=== PATIENT | male | born 1950 | race Caucasian/White ===

== ENCOUNTER 2019-11-16 12:36 | Emergency (ER) | payer MEDICARE, SELFPAY ==
--- NOTE | 2019-11-16 13:33 | ED.FEMALEGU ---
HPI - Female Genitourinary General Chief complaint: Urogenital-Female Stated complaint: Possible Bladder infection/Cold/Cough Time Seen by Provider: 11/16/19 13:33 Source: patient Mode of arrival: ambulatory History of Present Illness HPI Narrative: Patient presents with burning with urination, urinary frequency, and urgency. Patient denies abdominal pain no pelvic pain no back or flank pain. MD elicited complaint: dysuria and UTI Related Data Home Medications Medication Instructions Recorded Confirmed levothyroxine 25 mcg PO DAILY 11/16/19 11/16/19 metoprolol tartrate 50 mg PO DAILY 11/16/19 11/16/19 sertraline [Zoloft] 25 mg PO DAILY 11/16/19 11/16/19 sertraline [Zoloft] 50 mg PO DAILY 11/16/19 11/16/19 Allergies Allergy/AdvReac Type Severity Reaction Status Date / Time erythromycin base Allergy Rash Verified 11/16/19 12:56 Review of Systems Review of Systems: Narrative: CONSTITUTIONAL: Denies fever, chills, or sweats. EYES: Denies visual changes, redness, or discharge. ENT: Denies rhinorrhea, congestion, sore throat, or otalgia. CARDIOVASCULAR: Denies chest pain, palpitations, or edema. RESPIRATORY: Denies cough or dyspnea. GASTROINTESTINAL: Denies abdominal pain, nausea, vomiting, or diarrhea. GENITOURINARY: Denies hematuria. Reports urinary urgency, burning with urination and frequency SKIN: Denies rash or itching. MUSCULOSKELETAL: Denies back pain, joint pain, or myalgia. NEUROLOGIC: Denies headache, numbness, or weakness. PSYCHIATRIC: Denies anxiety or depression. PMFSH Comments At time of signature, agree with nursing past medical, surgical, social and family history. There is no relevant family history pertinent to the presenting complaint Exam Narrative: Exam Narrative: GENERAL: Well-appearing, well-nourished, and in no acute distress. HEAD: Normocephalic, atraumatic. EYES: PERRLA and EOMI. ENT: Nares clear, no rhinorrhea or epistaxis. Mucous membranes moist. NECK: Supple. CHEST: Clear to auscultation. No respiratory distress. HEART: Regular rate and rhythm. No murmur heard. Normal peripheral pulses. ABDOMEN: Soft, nontender, nondistended, normal active bowel sounds. EXTREMITIES: Normal range of motion. No edema. SKIN: Warm, dry, no rash. NEURO: No focal deficits. Alert and oriented x3. [place] Coma Scale Eye Opening: Spontaneous 4 [place] Coma Scale Motor: Obeys Commands 6 [place] Coma Scale Verbal: Oriented 5 [place] Coma Scale Total 15 MDM - Female Genitourinary Differential Diagnosis Differential diagnosis: Likely urinary tract infection, bacterial vaginosis and dysmenorrhea Lab Data Labs: Urine Glucose Negative Reference Range: Negative Urine Bilirubin 3+ Reference Range: Negative Urine Ketone 1+ Reference Range: Negative Urine Specific [place] 1.030 Reference Range:1.001-1.035 Urine Blood 3+ Reference Range: Negative * * Urine pH 6.0 Reference Range: 5.0-9.0 Urine Protein 3+ Reference Range: Negative Urine Urobilinogen 1.0 Reference Range: 0.2-1.0 Urine Nitrate Positive Reference Range: Negative Urine Leukocyte 3+ Reference Range: Negative Urine Color [place] Reference Range: Yellow Urine Characteristics Cloudy Critical Care Time Critical Care Time Critical Care Time: No Discharge Plan Discharge Clinical Impression: Urinary tract infection, Dysuria, Increased urinary frequency, Upper respiratory infection, viral Patient Disposition: Home, Self-Care Condition: Stable Instructions: Antibiotic Form Additional Instructions: Increase fluids especially cranberry juice and water Avoid caffeine and carbonated beverag
--- NOTE | 2019-11-16 20:07 | PC.NURSE ---
1250 TRIAGE: PT HERE WITH COMPLAINT DEVELOPED A PRODUCTIVE COUGH WITH POST NASAL DRAINAGE 1 1/2 WEEKS AGO. PT ALSO REPORTS HAS BEEN BURNING WITH URINATION SINCE YESTERDAY WITH BLOOD IN THE URINE SINCE TODAY. PT IS REPORTING SUPRAPUBIC PAIN AT A 3/10.
== END 2019-11-16 13:42 | disposition home or self-care (01) ==
PROVIDERS: Emergency Provider Nurse Practitioner Family; PCP Internal Medicine
DX: N39.0 Urinary tract infection, site not specified (principal); G25.81 Restless legs syndrome
CPT/HCPCS: 81003; 87086; 87088; 99203; G0463